=== PATIENT | male | born 1955 | race Caucasian/White ===

== ENCOUNTER 2019-07-29 17:50 | Emergency (ER) | payer BC, SELFPAY ==
[2019-07-29 18:00] VITALS: BP 153/74; PULSE 78; RESP 22; TEMP 37.2; O2SAT 98
--- NOTE | 2019-07-29 18:03 | ED.GENADULT ---
HPI - General Adult General Chief complaint: Upper Respiratory Infection Stated complaint: sinus issues/sore throat/ear pain Source: patient and RN notes reviewed Mode of arrival: ambulatory Limitations: no limitations History of Present Illness HPI narrative: This is a 63 years old male presents to the office for an evaluation of sinus congestion for one week. Symptoms include sinus congestion, drainage, ear fullness, headache and cough. Symptoms has gotten better with [id number] and worse over the weekend. He also report dental pain with abscess coming out from his gum since last night. He also have sore on his lip a few days ago; contribute to possible cold sore. Related Data Allergies Allergy/AdvReac Type Severity Reaction Status Date / Time No Known Allergies Allergy Verified 07/29/19 18:16 Review of Systems Review of Systems: Narrative: CONSTITUTIONAL: Denies fever. Reports feeling malaise EYES: Denies itchy/watery eyes, redness, discharge. CARDIOVASCULAR: Denies chest pain RESPIRATORY: Denies dyspnea, wheezing GASTROINTESTINAL: Denies abdominal pain, nausea, vomiting, diarrhea. GENITOURINARY: Denies urinary symptoms SKIN: reports scalp from blisters on his lower lobes MUSCULOSKELETAL: Denies acute back pain NEUROLOGIC: Denies lightheaded PMFSH Comments At time of signature, I agree with nursing past medical, surgical, social and family history. There is no relevant family history pertinent to the presenting complaint. Exam Narrative: Exam Narrative: GENERAL: This is a well-nourished, well-developed patient, in no apparent distress. Morbidly obese EYES: Sclera clear/white. Vision is grossly intact. EARS: External ears normal, auditory canals clear and without drainage, TMs slight pink with normal light reflex, without perforation. Hearing grossly intact. NOSE: External nose normal with no obvious nasal discharge, nares without redness, no rhinorrhea. THROAT: right lower lip noted crust lesion with slight tender to papalpation, mucous membranes moist, posterior pharynx erythema and edematous. Lower gum line appears edematous with pustular drainage when he pushed on his left lateral incisor; poor dental hygiene noted with a few cavities noted. NECK: Neck supple, non-tender without lymphadenopathy, masses or thyromegaly. CARDIOVASCULAR: Regular rate and rhythm without murmurs, gallops, or rubs. RESPIRATORY: Clear to auscultation. Breath sounds equal bilaterally. No wheezes, rales, or rhonchi. GASTROINTESTINAL: obese, abdomen soft, non-tender, nondistended. Bowel sounds are active. No guarding. NEURO: awake, alert, and oriented to person, place and time. There were no obvious focal neurologic abnormalities. Steady gait [place] Coma Scale Eye Opening: Spontaneous 4 [place] Coma Scale Motor: Obeys Commands 6 Lucy Coma Scale Verbal: Oriented 5 Course Vital Signs Vital signs: Vital Signs Temperature 98.9 F 07/29/19 18:00 Pulse Rate 78 07/29/19 18:00 Respiratory Rate 22 H 07/29/19 18:00 Blood Pressure 153/74 H 07/29/19 18:00 Pulse Oximetry 98 07/29/19 18:00 Temperature 98.9 F 07/29/19 18:00 Pulse Rate 78 07/29/19 18:00 Respiratory Rate 22 H 07/29/19 18:00 Blood Pressure 153/74 H 07/29/19 18:00 Pulse Oximetry 98 07/29/19 18:00 Medical Decision Making MDM Narrative Medical decision making narrative: Discharge instructions reviewed with patient, as well as provided in writing per nursing staff. The instructions also include specific and strict return/GO TO THE ER as well as f/u information. All questions have been answered, and the patient deny any further questions with discharge and discharge plan. Differential Diagnosis Differential Diagnosis: pneumonia, Allergic Rhinitis, Upper respiratory cough syndrome, Pharyngitis, Sinusitis, Bronchitis, otitis media, viral URI, Asthma/reactive airway disease, influenza Vital Signs Vital Signs: Vital Signs Temperature 98.9 F
== END 2019-07-29 18:22 | disposition home or self-care (01) ==
PROVIDERS: Emergency Provider Nurse Practitioner
DX: J06.9 Acute upper respiratory infection, unspecified (principal); K04.7 Periapical abscess without sinus
CPT/HCPCS: 99203; G0463